=== PATIENT | female | born 1960 | race Two or more races ===

== ENCOUNTER 2020-07-11 10:45 | Emergency (ER) | payer SELFPAY ==
[~2020-07-11] VITALS: Ht 149.9 cm; Wt 66.7 kg
[2020-07-11] MEDS ORDERED: IBUPROFEN 600 MG TABLET ONE (11:16)
[2020-07-11] MEDS ORDERED: ACETAMINOPHEN ES 500 MG TABLET ONE (11:16)
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
[2020-07-11] MEDS ORDERED: ACETAMINOPHEN ES 500 MG TABLET PO ONE (11:30)
[2020-07-11] MEDS ORDERED: IBUPROFEN 600 MG TABLET PO ONE (11:30)
[2020-07-11] MEDS ORDERED: IBUP-1957 PO (11:35)
--- NOTE | 2020-07-11 11:49 | NUR ---
Patient discharged to home in stable condition. Written and verbal after care instructions given. Patient verbalizes understanding of instruction. Pt ambulatory with a steady gait
[2020-07-11 11:50] VITALS: BP 151/73
== END 2020-07-11 11:51 | disposition home or self-care (01) ==
LOC: ER 10:55
DX: S50.02XA Contusion of left elbow, initial encounter (principal); V49.49XA Driver injured in collision with other motor vehicles in traffic accident, initial encounter; Y93.89 Activity, other specified; Y92.488 Other paved roadways as the place of occurrence of the external cause; Y99.8 Other external cause status
CPT/HCPCS: 73080-TC